=== PATIENT | female | born 1985 | race Caucasian/White ===

== ENCOUNTER 2016-03-22 23:49 | Emergency (ER) | payer OTHER ==
[~2016-03-22] VITALS: Ht 170.2 cm; Wt 70.3 kg
--- NOTE | ~2016-03-22 | EKG ---
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
[~2016-03-22 23:49] MED LIST: ACCUNEB SO1.25 MG/1 INH; ADDERALL 20 MG20 M1 PO; FLEXERIL PO; SINGULAIR 10 MG10 M1 PO; TOPROL XL25 MG PO
[2016-03-22] MEDS ORDERED: VENTOLIN HFA 1818 GM INH (23:54)
[2016-03-22] MEDS ORDERED: MIRAPEX0.125 MG PO (23:55)
[2016-03-23 01:12] LABS: ABSOLUTE NEUTROPHILS 4.9 thou/uL (1.4-8.2); BASOPHILS 1.3 % (0.0-2.0); EOSINOPHILS 4.4 % (0.0-3.0); HEMATOCRIT 38.8 % (37.0-47.0); HEMOGLOBIN 13.1 gm/dL (12.0-15.0); LYMPHOCYTES 35.2 % (24.0-44.0); MCH 30.7 pg (26.0-34.0); MCHC 33.8 % (28.0-37.0); MONOCYTES 8.1 % (1.0-8.0); PLATELET COUNT 280 thou/uL (150-400); RBC 4.27 mil/uL (4.20-5.00); RDW 12.2 % (10.5-14.5); WBC 9.7 thou/uL (4.0-11.0)
[2016-03-23 01:21] LABS: MANUAL DIFF NO
[2016-03-23 01:27] LABS: CALCIUM 8.3 mg/dL (8.5-10.1); CREATININE 0.6 mg/dL (0.6-1.3); POTASSIUM 3.7 mmol/L (3.5-5.1)
[2016-03-23 02:56] VITALS: BP 143/86
== END 2016-03-23 02:56 | disposition home or self-care (01) ==
LOC: ER 23:49
PROVIDERS: Emergency Medicine
DX: E86.0 Dehydration (principal); J45.909 Unspecified asthma, uncomplicated; M41.80 Other forms of scoliosis, site unspecified; I10 Essential (primary) hypertension; F17.210 Nicotine dependence, cigarettes, uncomplicated

== ENCOUNTER 2016-11-18 11:42 | Emergency (ER) | payer OTHER ==
[~2016-11-18] VITALS: Ht 170.2 cm; Wt 81.7 kg
[~2016-11-18 11:42] MED LIST changes: +MIRAPEX0.125 MG PO; +VENTOLIN HFA 1818 GM INH
[2016-11-18 12:16] LABS: URINE BILIRUBIN NEGATIVE (Negative); URINE BLOOD NEGATIVE (Negative); URINE COLOR YELLOW; URINE GLUCOSE-RANDOM* NEGATIVE (Negative); URINE KETONES NEGATIVE (Negative); URINE LEUKOCYTES-REFLEX NEGATIVE (Negative); URINE PROTEIN (DIPSTICK) NEGATIVE (Negative); URINE SPECIFIC GRAVITY >= 1.030 (1.003-1.035); URINE UROBILINOGEN 0.2 E.U./dl (0.2-1.0)
[2016-11-18 13:08] LABS: ABSOLUTE NEUTROPHILS 7.5 thou/uL (1.4-8.2); EOSINOPHILS 4.3 % (0.0-3.0); HEMATOCRIT 40.3 % (37.0-47.0); HEMOGLOBIN 13.8 gm/dL (12.0-15.0); LYMPHOCYTES 16.4 % (24.0-44.0); MCH 30.9 pg (26.0-34.0); MCHC 34.3 g/dL (28.0-37.0); MCV 90.2 fL (80.0-100.0); MONOCYTES 7.6 % (1.0-8.0); PLATELET COUNT 307 thou/uL (150-400); POLYS 70.7 % (36.0-66.0); RBC 4.47 mil/uL (4.20-5.00); RDW 12.9 % (10.5-14.5); WBC 10.6 thou/uL (4.0-11.0)
[2016-11-18 13:11] LABS: CALCIUM 9.1 mg/dL (8.5-10.1); CREATININE 0.7 mg/dL (0.6-1.0); MANUAL DIFF NO; POTASSIUM 4.1 mmol/L (3.5-5.1)
[2016-11-18 13:16] LABS: ALBUMIN 3.6 g/dL (3.4-5.0); TOTAL BILIRUBIN 0.2 mg/dL (<0.1-1.0); TOTAL PROTEIN 7.4 g/dL (6.4-8.2)
[2016-11-18] MEDS ORDERED: TORADOL 10 MG T10 MG PO (14:00)
[2016-11-18 14:38] VITALS: BP 121/76
[2016-11-19 17:13] LABS: CHLAMYDIA TRACHOMATIS-PCR Negative (Negative); NEISSERIA GONORRHEA-PCR Negative (Negative)
== END 2016-11-18 14:55 | disposition home or self-care (01) ==
LOC: ER 11:42
PROVIDERS: Emergency Medicine; Physician Assistant
DX: N83.202 Unspecified ovarian cyst, left side (principal); J45.909 Unspecified asthma, uncomplicated; I10 Essential (primary) hypertension; M41.9 Scoliosis, unspecified; F17.210 Nicotine dependence, cigarettes, uncomplicated

== ENCOUNTER 2017-07-02 01:16 | Emergency (ER) | payer OTHER ==
[~2017-07-02] VITALS: Ht 170.2 cm; Wt 86.2 kg
[~2017-07-02 01:16] MED LIST changes: +TORADOL 10 MG T10 MG PO
[2017-07-02 01:32] LABS: URINE BILIRUBIN NEGATIVE (Negative); URINE BLOOD NEGATIVE (Negative); URINE CLARITY CLEAR; URINE COLOR YELLOW; URINE GLUCOSE-RANDOM* NEGATIVE (Negative); URINE KETONES NEGATIVE (Negative); URINE LEUKOCYTES NEGATIVE (Negative); URINE NITRITE NEGATIVE (Negative); URINE PROTEIN (DIPSTICK) NEGATIVE (Negative); URINE SPECIFIC GRAVITY 1.015 (1.005-1.035); URINE UROBILINOGEN 0.2 E.U./dl (0.2-1.0)
[2017-07-02 01:58] LABS: ABSOLUTE NEUTROPHILS 7.2 thou/uL (1.4-8.2); BASOPHILS 0.7 % (0.0-2.0); EOSINOPHILS 4.6 % (0.0-3.0); HEMATOCRIT 38.6 % (37.0-47.0); HEMOGLOBIN 13.1 gm/dL (12.0-15.0); LYMPHOCYTES 23.1 % (24.0-44.0); MCH 29.9 pg (26.0-34.0); MCV 87.9 fL (80.0-100.0); MONOCYTES 8.1 % (1.0-8.0); PLATELET COUNT 313 thou/uL (150-400); POLYS 63.5 % (36.0-66.0); RBC 4.39 mil/uL (4.20-5.00); RDW 13.5 % (10.5-14.5); WBC 11.3 thou/uL (4.0-11.0)
[2017-07-02 02:04] LABS: CALCIUM 8.6 mg/dL (8.5-10.1); CREATININE 0.6 mg/dL (0.6-1.0); POTASSIUM 4.1 mmol/L (3.5-5.1)
[2017-07-02] MEDS ORDERED: IBUPROFEN 800800 MG PO (02:16)
[2017-07-02] MEDS ORDERED: NORCO 5-325 TA1 EACH PO (02:16)
[2017-07-02 03:23] VITALS: BP 136/81
[2017-07-02] MEDS ORDERED: CYCLOBENZAPRINE5 MG PO (03:26)
== END 2017-07-02 03:39 | disposition home or self-care (01) ==
LOC: ER 01:16
PROVIDERS: Emergency Medicine
DX: M54.5 Low back pain (principal); I10 Essential (primary) hypertension; J45.909 Unspecified asthma, uncomplicated; F17.210 Nicotine dependence, cigarettes, uncomplicated